=== PATIENT | female | born 1985 | race Caucasian/White ===

== ENCOUNTER → 2016-08-04 | Outpatient (CLI) | payer OTHER ==
[~2016-08-04] MED LIST: BUPR150T3 PO; BUSP5TAB PO; BUSP5TAB3 PO; CEPH500C3 PO; GABA100C4 PO; IBUP-232 PO; NAPR500 PO; OLAN15TA PO; OXYC1TAB63 PO; PREN29TA PO; REGL10TA5 PO
== END ==
LOC: HPND 08:57
DX: O35.0XX0 Maternal care for (suspected) central nervous system malformation in fetus, not applicable or unspecified (principal)
CPT/HCPCS: 76811; 76825; 76827; 93325

== ENCOUNTER 2016-08-19 11:30 | Inpatient (IN) | payer OTHER ==
[~2016-08-19 11:30] MED LIST changes: -BUSP5TAB PO; -GABA100C4 PO; -IBUP-232 PO; -OXYC1TAB63 PO; -PREN29TA PO; -REGL10TA5 PO
--- NOTE | 2016-08-19 13:04 | HHI.HP ---
HPI Chief Complaint low FILI (5) recent voluntary withdrawal from low dose buprenorphine trisomy 21 previous section x2 Date Seen: Aug 19, 2016 Travel History International Travel<30 Days: No Contact w/Intl Traveler<30Days: No Known Affected Area: No History of Present Illness HPI 31 yo wf at 37 1/7 weeks now at [facility] after diversion from [facility] to [place]. Was on 2 mg subutex BID. Notes decreased movement and BPP 8/ 8 but FILI 5. has trisomy 21 no PTL,HTN did not have 28 week labs that we can find (transfer to [facility] from the [facility]) Para: 2 : 3 History Past Medical History Narrative Medical opioid dependence in remission Past Surgical History Narrative Surgical previous section x 2 Family History Family History: Negative Social History Alcohol Use: No Tobacco Use: No Substance Abuse: Yes Allergies-Medications (Allergen,Severity, Reaction): Coded Allergies: No Known Allergies (Unverified , 08/19/15) Home Meds Active Scripts Cephalexin (Keflex)500 Mg Qal219 Mg PO Q8 #21 CAP Prov:Lashawn Strickland MD 04/22/16 Reported Medications Buspar5 Mg 5 Mg Tab15 Mg PO BID 09/08/15 Naproxen (Naprosyn)500 Mg Eys651 Mg PO DAILY PRN (PAIN) 09/08/15 Bupropion Hcl (Bupropion Hcl Xl)150 Mg Ufp406 Mg PO DAILY 09/08/15 Olanzapine (Olanzapine)15 Mg Tab7.5 Mg PO HS 09/08/15 Review of Systems General / Constitutional: No: Fever, Weight Gain, Chills, Other Gastrointestinal: Nausea, Indigestion Physical Exam Narrative GENERAL: Well-nourished, well-developed patient. SKIN: Warm and dry. HEAD: Normocephalic and atraumatic. EYES: No scleral icterus. No injection or drainage. ENT: No nasal drainage noted. Mucous membranes pink. Airway patent. NECK: Supple, trachea midline. No JVD. CARDIOVASCULAR: Regular rate and rhythm without murmurs, gallops, or rubs. RESPIRATORY: Breath sounds equal bilaterally. No accessory muscle use. BREASTS: Bilateral exam showed no masses , no retractions, no nipple discharge. ABDOMEN/GI: Abdomen soft, non-tender, bowel sounds present, no rebound, no guarding 37 cm cervix closed and retroverted EFW 7 1/2 EXTREMITIES: No cyanosis or edema. BACK: Nontender without obvious deformity. No CVA tenderness. NEUROLOGICAL: Awake and alert. Motor and sensory grossly within normal limits. Five out of 5 muscle strength in all muscle groups. Normal speech. Data Data Orders here in antepartum for monitoring and determination if section needed earlier than 39 weeks Nini Quan MD Aug 19, 2016 13:04
[2016-08-19] MEDS ORDERED: ZOLPIDEM TARTRATE 5 MG TAB PO PRN (13:15)
[2016-08-19] MEDS ORDERED: SODIUM CHLORIDE 0.9% FLUSH 5 ML FLUSH IVF PRN (13:15)
[2016-08-19] MEDS ORDERED: ALUMINUM/MAGNESIUM/SIMETH 30 ML CUP PO PRN (13:15)
[2016-08-19] MEDS ORDERED: ONDANSETRON ODT 4 MG TAB PO PRN (13:15)
[2016-08-19 13:23] LABS: BACTERIA, URINE RARE /hpf; BLOOD, URINE NEG (NEG); GLUCOSE,URINE NEG (NEG); KETONE, URINE 40 mg/dL (NEG); MUCUS URINE FEW /lpf (OCC); NITRITE,URINE NEG (NEG); PH, URINE 5.5 (5.0-8.5); SQUAMOUS EPITHELIAL CELL URINE 1 /hpf (0-5); URINE COLOR YELLOW (YELLW/STRAW)
[2016-08-19 13:34] LABS: COMMENT (UR) CULT NOT INDICATED; CULTURE IF INDICATED CULT NOT INDICATED
[2016-08-19 15:16] LABS: AUTOMATED NEUTROPHIL # 9.6 TH/MM3 (1.8-7.7); BASOPHIL % 0.2 % (0.0-2.0); EOSINOPHIL % 0.3 % (0.0-4.0); HEMATOCRIT 38.3 % (35.0-46.0); HEMO FLAGS DIFF FINAL; LYMPH % 21.1 % (9.0-44.0); LYMPHOCYTE # 2.8 TH/MM3 (1.0-4.8); MEAN CELL VOLUME 92.5 FL (80.0-100.0); MEAN CORPUSCULAR HEMOGLOBIN 31.1 PG (27.0-34.0); MEAN CORPUSCULAR HGB CONC 33.6 % (32.0-36.0); MONO % 6.5 % (0.0-8.0); NEUT % 71.9 % (16.0-70.0); PLATELET COUNT 322 TH/MM3 (150-450); RED BLOOD COUNT 4.14 MIL/MM3 (4.00-5.30); RED CELL DISTRIBUTION WIDTH 15.8 % (11.6-17.2); WHITE BLOOD COUNT 13.3 TH/MM3 (4.0-11.0)
[2016-08-19 15:26] LABS: BICARBONATE 18.7 MEQ/L (21.0-32.0); POTASSIUM 3.5 MEQ/L (3.5-5.1)
[2016-08-19 15:28] LABS: INDIRECT BILIRUBIN 0.5 MG/DL (0.0-0.8); TOTAL BILIRUBIN ADULT 0.6 MG/DL (0.2-1.0)
[2016-08-19 15:45] VITALS: RESP 18; TEMP 98.6
[2016-08-19 15:46] VITALS: BP 112/69; PULSE 88
[2016-08-19] MEDS: ACETAMINOPHEN 325 MG TAB PO PRN (19:24)
[2016-08-19] MEDS: SODIUM CHLORIDE 0.9% FLUSH 5 ML FLUSH IVF SCH (21:00)
[2016-08-20] VITALS (14 sets, daily range): BP systolic 93–123; BP diastolic 62–72; PULSE 69–82; RESP 16–20; TEMP 97.5–98; O2SAT 95–97
[2016-08-20] MEDS: ACETAMINOPHEN 325 MG TAB PO PRN (01:37)
--- NOTE | 2016-08-20 07:51 | PD.OB.ANTE ---
Subjective Interval History at 37 2/7 with prior section x2. Baby trisomy 21 (found late in third trimester) and recently stopped low dose subutex and is at [facility]. BPP yesterday showed FILI 5 and she questions leakage but had already been checked. still says little episodes of wetness through night. GFM some cramping Some back pain from "nerve damamge" In good spirits and cooperative. If amnisure negative and FILI better may return to [facility] Otherwise I will section tonight. Antepartum ROS: Denies: New complaints, Loss of fluid, Vaginal bleeding, movement normal, Contractions, Other Objective Vital Signs Vital Signs Date Time Temp Pulse Resp B/P Pulse Ox O2 Delivery O2 Flow Rate FiO2 08/20/16 01:37 82 107/72 08/20/16 01:36 97.5 16 08/19/16 20:30 18 08/19/16 15:46 88 08/19/16 15:46 112/69 08/19/16 15:45 98.6 18 Lab & Micro Results Test 08/19/16 08/19/16 12:30 15:02 Urine Color YELLOW Urine Turbidity CLEAR Urine pH 5.5 Urine Specific [place] 1.021 Urine Protein TRACE mg/dL Urine Glucose (UA) NEG mg/dL Urine Ketones 40 mg/dL Urine Occult Blood NEG Urine Nitrite NEG Urine Bilirubin NEG Urine Urobilinogen LESS THAN 2.0 MG/DL Urine Leukocyte Esterase NEG Urine RBC LESS THAN 1 /hpf Urine WBC 1 /hpf Urine Squamous Epithelial 1 /hpf Cells Urine Bacteria RARE /hpf Urine Mucus FEW /lpf Microscopic Urinalysis Comment CULT NOT INDICATED White Blood Count 13.3 TH/MM3 Red Blood Count 4.14 MIL/MM3 Hemoglobin 12.9 GM/DL Hematocrit 38.3 % Mean Corpuscular Volume 92.5 FL Mean Corpuscular Hemoglobin 31.1 PG Mean Corpuscular Hemoglobin 33.6 % Concent Red Cell Distribution Width 15.8 % Platelet Count 322 TH/MM3 Mean Platelet Volume 8.4 FL Neutrophils (%) (Auto) 71.9 % Lymphocytes (%) (Auto) 21.1 % Monocytes (%) (Auto) 6.5 % Eosinophils (%) (Auto) 0.3 % Basophils (%) (Auto) 0.2 % Neutrophils # (Auto) 9.6 TH/MM3 Lymphocytes # (Auto) 2.8 TH/MM3 Monocytes # (Auto) 0.9 TH/MM3 Eosinophils # (Auto) 0.0 TH/MM3 Basophils # (Auto) 0.0 TH/MM3 CBC Comment DIFF FINAL Differential Comment Sodium Level 137 MEQ/L Potassium Level 3.5 MEQ/L Chloride Level 106 MEQ/L Carbon Dioxide Level 18.7 MEQ/L Anion Gap 12 MEQ/L Blood Urea Nitrogen 12 MG/DL Creatinine 0.63 MG/DL Estimat Glomerular Filtration 109 ML/MIN Rate Random Glucose 144 MG/DL Uric Acid 4.0 MG/DL Calcium Level 8.6 MG/DL Total Bilirubin 0.6 MG/DL Direct Bilirubin 0.1 MG/DL Indirect Bilirubin 0.5 MG/DL Aspartate Amino Transf 24 U/L (AST/SGOT) Alanine Aminotransferase 36 U/L (ALT/SGPT) Alkaline Phosphatase 209 U/L Total Protein 7.4 GM/DL Albumin 3.0 GM/DL Physical Exam GENERAL: Well-nourished, well-developed patient. CARDIOVASCULAR: Regular rate and rhythm without murmurs, gallops, or rubs. RESPIRATORY: Breath sounds equal bilaterally. No accessory muscle use. fundus soft occ UC strip category 1 Uterine Contractions: [-] EXTREMITIES: No cyanosis or edema, non-tender, without signs of DVT. Assessment and Plan Assessment and Plan see notes above. await amnisure and BPP Nini Quan MD Aug 20, 2016 07:51
[2016-08-20] MEDS: SODIUM CHLORIDE 0.9% FLUSH 5 ML FLUSH IVF SCH (09:00)
[2016-08-20] MEDS ORDERED: CITRIC ACID-SODIUM CITRATE LIQ 30 ML UDC PO SCH (10:30)
[2016-08-20] MEDS ORDERED: LACTATED RINGER'S 1000 ML IV ONE (10:30)
[2016-08-20] MEDS: LACTATED RINGER'S 1000 ML IV SCH ×2 (11:39→17:10)
[2016-08-20 11:53] LABS: AMPHETAMINE, URINE NEG (NEG); BARBITURATES, URINE NEG (NEG); COCAINE, URINE NEG (NEG)
[2016-08-20] MEDS: GABAPENTIN 100 MG CAP PO SCH ×3 (13:34→22:22)
[2016-08-20] MEDS ORDERED: PREN29TA PO (14:13)
[2016-08-20] MEDS ORDERED: OXYTOCIN 10 UNIT/ML AMP ONE (16:30)
[2016-08-20] MEDS ORDERED: ACETAMINOPHEN 1000 MG/100 ML VIAL IV ONE ×2 (16:30→18:15)
[2016-08-20] MEDS: ceFAZolin 2 GM PREMIX 50 ML IV SCH ×2 (16:35→18:45)
[2016-08-20] MEDS ORDERED: ACETAMINOPHEN 1000 MG/100 ML VIAL IV SCH (18:00)
[2016-08-20] MEDS ORDERED: MORPHINE SULFATE PF 5 MG/10 ML VIAL ONE (18:05)
[2016-08-20] MEDS ORDERED: ONDANSETRON HCL 4 MG/2 ML VIAL ONE (18:05)
--- NOTE | 2016-08-20 18:13 | PD.OB.DELI ---
Procedure Note Section Procedure Pre Op Diagnosis 37 week IUP with persistent oligohydramnios, previous section x2, trisomy 21 Post Op Diagnosis: Post Op Diagnosis same delivered Performed by Nini Quan Procedure: Repeat Low Transverse Sec, Other (BTL) Indication for delivery: Other (oligohydramnios, trisomy, ) Informed consent obtained: For anesthesia, For procedure Confirmed correct: Patient, Procedure, Site, Time-out taken Anesthesia: Spinal Medication prior to procedure: As documented in eMAR Monitoring during procedure: Blood pressure monitoring Urinary catheter: Inserted using sterile technique, To dependent drainage, ml urine output Sterile preparation: Duraprep, In usual fashion Position: Supine with wedge to right side Operative Features Skin Incision: Pfannenstiel Uterine Incision: Low transverse w/knife / blunt ext Membranes Ruptured: Artificially Presentation: Occiput anterior Delivery of : Assisted : Male One Minute : 8 Five Minute : 9 Weight: 7 4 Status of infant: Viable, Cord blood, Nursery present Placenta delivered: Intact, Sent to pathology Medications: Antibiotics, Oxytocin Estimated blood loss: average Procedure tolerated: Well Maternal Condition: Stable Baby Complications: Laceration, Other (consistent with trisomy 21) Nini Quan MD Aug 20, 2016 18:13
[2016-08-20] MEDS ORDERED: SODIUM CHLORIDE 0.9% FLUSH 5 ML FLUSH IV PRN (18:15)
[2016-08-20] MEDS ORDERED: ZOLPIDEM TARTRATE 5 MG TAB PO PRN (18:15)
[2016-08-20] MEDS ORDERED: DOCUSATE SODIUM 50 MG/SENNA 8.6 MG TAB PO PRN (18:15)
[2016-08-20] MEDS ORDERED: oxyCODONE/ACETAMINOPHEN 5 MG/325 MG TAB PO PRN (18:15)
[2016-08-20] MEDS ORDERED: KETOROLAC TROMETHAMINE 60 MG/2 ML (IM) VIAL IM PRN (18:15)
[2016-08-20] MEDS ORDERED: ACETAMINOPHEN 325 MG TAB PO PRN (18:15)
[2016-08-20] MEDS ORDERED: OXYTOCIN 30 UNITS-500ML PREMIX 500 ML IV ONE (18:15)
[2016-08-20] MEDS ORDERED: ONDANSETRON HCL 4 MG/2 ML VIAL IV PUSH PRN (18:15)
[2016-08-20] MEDS ORDERED: SIMETHICONE 80 MG CHEWABLE TAB PO PRN (18:15)
[2016-08-20] MEDS ORDERED: DICLOFENAC SODIUM 37.5 MG/ML VIAL IV PUSH ONE ×2 (18:33→19:05)
[2016-08-20] MEDS ORDERED: EPIDURAL-DO NOT ADMINISTER ANTICOAGULANTS XX PRN (19:30)
[2016-08-20] MEDS ORDERED: EPIDURAL-DIPHENHYDRAMINE HCL 50 MG/ML VIAL IV PUSH PRN (19:30)
[2016-08-20] MEDS ORDERED: EPIDURAL-NO SYSTEMIC NARCOTICS XX PRN (19:30)
[2016-08-20] MEDS ORDERED: EPIDURAL-DIPHENHYDRAMINE HCL 50 MG CAP PO PRN (19:30)
[2016-08-20] MEDS ORDERED: EPIDURAL-NALOXONE HCL 0.4 MG/ML AMP IV PRN (19:30)
[2016-08-20] MEDS ORDERED: OXYTOCIN 30 UNITS-500ML PREMIX 500 ML ONE (19:39)
[2016-08-20] MEDS: SODIUM CHLORIDE 0.9% FLUSH 5 ML FLUSH IV SCH (20:54)
[2016-08-20] MEDS ORDERED: LACTATED RINGER'S 1000 ML INJ 1,000 ML IV SCH (23:13)
[2016-08-21 01:20] VITALS: BP 98/54; PULSE 71; RESP 16; TEMP 97.9; TEMP 98.6; O2SAT 97
[2016-08-21] MEDS: ACETAMINOPHEN 1000 MG/100 ML VIAL IV SCH ×2 (01:34→10:00)
[2016-08-21 02:00] VITALS: PULSE 16; RESP 16
[2016-08-21 03:15] VITALS: RESP 16
[2016-08-21] MEDS ORDERED: OXYTOCIN 30 UNITS-500ML PREMIX 500 ML IV PRN (04:15)
[2016-08-21 05:55] LABS: AUTOMATED NEUTROPHIL # 8.1 TH/MM3 (1.8-7.7); BASOPHIL % 0.3 % (0.0-2.0); EOSINOPHIL % 0.4 % (0.0-4.0); HEMATOCRIT 32.3 % (35.0-46.0); HEMO FLAGS DIFF FINAL; LYMPH % 19.5 % (9.0-44.0); LYMPHOCYTE # 2.2 TH/MM3 (1.0-4.8); MEAN CELL VOLUME 93.1 FL (80.0-100.0); MEAN CORPUSCULAR HEMOGLOBIN 31.9 PG (27.0-34.0); MEAN CORPUSCULAR HGB CONC 34.3 % (32.0-36.0); MONO % 8.7 % (0.0-8.0); NEUT % 71.1 % (16.0-70.0); PLATELET COUNT 289 TH/MM3 (150-450); RED BLOOD COUNT 3.47 MIL/MM3 (4.00-5.30); WHITE BLOOD COUNT 11.3 TH/MM3 (4.0-11.0)
[2016-08-21] MEDS ORDERED: OXYC1TAB63 PO (08:45)
[2016-08-21] MEDS: GABAPENTIN 100 MG CAP PO SCH ×4 (08:50→21:08)
[2016-08-21] MEDS: oxyCODONE/ACETAMINOPHEN 5 MG/325 MG TAB PO PRN ×3 (08:52→21:08)
[2016-08-21] MEDS: IBUPROFEN 600 MG TAB PO PRN ×3 (09:44→21:08)
[2016-08-21] MEDS: busPIRone HCL 5 MG TAB PO SCH ×2 (11:10→21:08)
--- NOTE | 2016-08-21 11:56 | HHI.OB ---
Subjective Post Operative Day: 1 Objective Vitals/I&O Vital Signs Date Time Temp Pulse Resp B/P Pulse Ox O2 Delivery O2 Flow Rate FiO2 08/21/16 03:15 16 08/21/16 02:00 16 16 08/21/16 01:20 98.6 97 08/21/16 01:20 97.9 08/21/16 01:20 71 16 98/54 08/20/16 22:20 18 08/20/16 20:25 69 20 93/64 08/20/16 20:25 97.7 08/20/16 18:52 18 95 08/20/16 18:52 72 105/66 08/20/16 18:36 97 08/20/16 18:36 72 18 114/72 08/20/16 18:24 18 95 08/20/16 18:24 72 114/62 08/20/16 18:05 97.7 81 18 116/69 96 08/20/16 16:40 72 113/64 08/20/16 15:56 18 08/20/16 15:15 72 104/64 08/20/16 12:00 98.0 Result Diagram: 08/21/16 0530 08/19/16 1502 Objective Remarks GENERAL: Well-nourished, well-developed patient. CARDIOVASCULAR: Regular rate and rhythm without murmurs, gallops, or rubs. RESPIRATORY: Breath sounds equal bilaterally. No accessory muscle use. ABDOMEN/GI: Abdomen soft, non-tender, bowel sounds present. Incision: DRESSING, Clean, dry and intact. Fundus: Firm, non-tender at umbilicus. GENITOURINARY: Light to moderate bleeding. EXTREMITIES: No cyanosis or edema, non-tender, without signs of DVT. Medications and IVs Current Medications Medications (Trade) Dose Ordered Sig/Lazaro Route Start Time Stop Time Status Last Admin (Tylenol) 650 mg Q4H PRN PO 08/19/16 13:15 08/20/16 01:37 (Mag-Al Plus Susp Liq) 30 ml QID PRN PO 08/19/16 13:15 08/19/16 20:15 Ondansetron HCl 4 mg 4 mg Q6H PRN PO 08/19/16 13:15 (Lr 1000 ml Inj) 1,000 ml @ 150 mls/hr Q6H40M IV 08/20/16 10:30 08/20/16 11:39 Gabapentin 200 mg 200 mg QID PO 08/20/16 13:00 08/21/16 08:50 (Lr 1000 ml Inj) 1,000 ml @ 100 mls/hr Q10H IV 08/20/16 23:13 08/21/16 19:12 08/21/16 01:32 (NS Flush) 2 ml BID IV 08/20/16 21:00 (NS Flush) 2 ml UNSCH PRN IV 08/20/16 18:15 (Mylicon Chew) 80 mg QID PRN PO 08/20/16 18:15 (Tylenol) 650 mg Q6H PRN PO 08/20/16 18:15 (Percocet 5-325 Mg) 1 tab Q4H PRN PO 08/20/16 18:15 (Percocet 5-325 Mg) 2 tab Q4H PRN PO 08/20/16 18:15 08/21/16 08:52 (Merline-Colace) 2 tab Q12H PRN PO 08/20/16 18:15 (Ambien) 5 mg HS PRN PO 08/20/16 18:15 (M-M-R Ii Inj) 0.5 ml ONCE ONCE SQ 08/21/16 16:00 08/21/16 16:01 (Boostrix Inj) 0.5 ml ONCE ONCE IM 08/21/16 16:00 08/21/16 16:01 08/21/16 11:23 (Zofran Inj) 4 mg Q6H PRN IV PUSH 08/20/16 18:15 Miscellaneous Information NO SYSTEMIC NARCOTICS TO BE GIVEN FO... UNSCH PRN XX 08/20/16 19:30 08/21/16 19:29 (Narcan Inj) 0.4 mg UNSCH PRN IV 08/20/16 19:30 08/21/16 19:29 (Benadryl Inj) 25 mg Q6H PRN IV PUSH 08/20/16 19:30 08/21/16 19:29 08/20/16 22:28 (Benadryl) 50 mg Q6H PRN PO 08/20/16 19:30 08/21/16 19:29 Miscellaneous Information ALL NURSING DEPARTMENTS UNSCH PRN XX 08/20/16 19:30 08/21/16 19:29 (Motrin) 600 mg Q6HR PRN PO 08/21/16 09:00 08/21/16 09:44 (Buspar) 5 mg Q12HR PO 08/21/16 10:00 08/21/16 11:10 Assessment/Plan Problem List: (1) delivery delivered Plan: ROUTINE (2) Oligohydramnios (3) 37 weeks gestation of Assessment and Plan PT TEARFUL, SENT TO [facility] FOR CARDIAC EVALUATION PT ANXIOUS TO BE DC TO SEE PT STARTED ON BUSPAR FOR ANXIETY PAIN WELL MANAGED, WILL START ORAL PAIN MEDICATION THIS AM UP TO SHOWER TODAY AND REMOVE DRESSING ROUTINE Karla Gamez Aug 21, 2016 11:56
[2016-08-21 12:00] VITALS: BP 116/77; PULSE 70; RESP 18; TEMP 98.5
[2016-08-21 16:00] VITALS: BP 116/75; PULSE 70; RESP 18; TEMP 98.5
[2016-08-21] MEDS ORDERED: MEASLES, MUMPS, RUBELLA VACCINE 0.5 ML VIAL SQ ONE (16:00)
[2016-08-21] MEDS ORDERED: DIPHTH/TETANUS/ACEL PERTUSSIS (BOOSTER) 0.5 ML VIAL/PFS IM ONE (16:00)
[2016-08-21 19:45] VITALS: PULSE 64; RESP 18; TEMP 98.2; O2SAT 99
[2016-08-22] MEDS: SODIUM CHLORIDE 0.9% FLUSH 5 ML FLUSH IV SCH (07:12)
[2016-08-22] MEDS: LACTATED RINGER'S 1000 ML IV SCH (07:12)
[2016-08-22] MEDS: IBUPROFEN 600 MG TAB PO PRN (07:19)
[2016-08-22] MEDS: oxyCODONE/ACETAMINOPHEN 5 MG/325 MG TAB PO PRN (07:19)
[2016-08-22 07:25] VITALS: BP 112/73; PULSE 73; RESP 18; TEMP 98.5
[2016-08-22] MEDS: GABAPENTIN 100 MG CAP PO SCH (08:45)
[2016-08-22] MEDS: busPIRone HCL 5 MG TAB PO SCH (08:45)
--- NOTE | 2016-08-22 08:51 | HHI.OB ---
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 CARDIOVASCULAR: Regular rate and rhythm without murmurs, gallops, or rubs. RESPIRATORY: Breath sounds equal bilaterally. No accessory muscle use. ABDOMEN/GI: Abdomen soft, non-tender, bowel sounds present. Incision: DRESSING, Clean, dry and intact. Fundus: Firm, non-tender at umbilicus. GENITOURINARY: Light to moderate bleeding. EXTREMITIES: No cyanosis or edema, non-tender, without signs of DVT. Medications and IVs Current Medications Medications (Trade) Dose Ordered Sig/Lazaro Route Start Time Stop Time Status Last Admin (Tylenol) 650 mg Q4H PRN PO 08/19/16 13:15 08/20/16 01:37 (Mag-Al Plus Susp Liq) 30 ml QID PRN PO 08/19/16 13:15 08/19/16 20:15 Ondansetron HCl 4 mg 4 mg Q6H PRN PO 08/19/16 13:15 (Lr 1000 ml Inj) 1,000 ml @ 150 mls/hr Q6H40M IV 08/20/16 10:30 08/20/16 11:39 (Neurontin) 200 mg QID PO 08/20/16 13:00 08/22/16 08:45 (NS Flush) 2 ml BID IV 08/20/16 21:00 (NS Flush) 2 ml UNSCH PRN IV 08/20/16 18:15 (Mylicon Chew) 80 mg QID PRN PO 08/20/16 18:15 (Tylenol) 650 mg Q6H PRN PO 08/20/16 18:15 (Percocet 5-325 Mg) 1 tab Q4H PRN PO 08/20/16 18:15 (Percocet 5-325 Mg) 2 tab Q4H PRN PO 08/20/16 18:15 08/22/16 07:19 (Merline-Colace) 2 tab Q12H PRN PO 08/20/16 18:15 08/22/16 08:45 (Ambien) 5 mg HS PRN PO 08/20/16 18:15 (Zofran Inj) 4 mg Q6H PRN IV PUSH 08/20/16 18:15 (Motrin) 600 mg Q6HR PRN PO 08/21/16 09:00 08/22/16 07:19 (Buspar) 5 mg Q12HR PO 08/21/16 10:00 08/22/16 08:45 Assessment/Plan Problem List: (1) delivery delivered Plan: ROUTINE (2) Oligohydramnios (3) 37 weeks gestation of Assessment and Plan discharge today in care of mom. To be at [facility] by 8 pm will have scripts for reglan, buspar and motrin to see me in one week Nini Quan MD Aug 22, 2016 08:51
[2016-08-22] MEDS ORDERED: REGL10TA5 PO (08:56)
[2016-08-22] MEDS ORDERED: GABA100C4 PO (09:02)
[2016-08-22] MEDS ORDERED: IBUP-232 PO (09:02)
--- NOTE | 2016-08-22 09:02 | HHI.DCPOC ---
Discharge Care Plan Report Symptoms to Your Doctor -Temperate above 100.5 degrees -Redness, of incision or excessive or foul smelling drainage -Unusual pain or calf pain -Increased vaginal bleeding -Painful or difficulty urinating -Feelings of extreme sadness or anxiety after 2 weeks Goals to Promote Your Health * To prevent worsening of your condition and complications * To maintain your health at the optimal level Directions to Meet Your Goals Take your medications as prescribed Follow your dietary instruction Follow activity as directed Ensure plenty of rest for recovery Drink fluids for hydration Keep your appointments as scheduled Take your immunizations and boosters as scheduled If your symptoms worsen call your PCP, if no PCP go to Urgent Care Center or Emergency Room Smoking is Dangerous to Your Health. Avoid second hand smoke Call the 24-hour crisis hotline for domestic abuse at Nini Quan MD Aug 22, 2016 09:02
[2016-08-22] MEDS ORDERED: BUSP5TAB PO (09:07)
[2016-08-24 09:45] LABS: BATH SALTS (MDPV) UR NEG (NEG); ECSTASY (MDMA) UR NEG (NEG); HEROIN (6-ACETYLMORPHINE) UR NEG (NEG); K2 SPICE UR NEG (NEG); OBMETHADONE UR NEG (NEG); OXYCODONE (PERCODAN) NEG (NEG); PHENCYCLIDINE URINE NEG (NEG)
--- NOTE | 2016-08-26 08:00 | MP ---
cc: NINI KONG DATE OF SURGERY 08/20/2016 DATE OF 1985 POSTOPERATIVE DIAGNOSIS 37 plus week intrauterine with trisomy 21 infant, persistent oligohydramnios and previous section x2, multiparity also. PROCEDURE Repeat low transverse segment section and bilateral fimbriectomy ANESTHESIA Spinal with Duramorph SURGEON Nini Kong MD [employer] OR staff FINDINGS A living male weighing 7 pounds 4 ounces and 's 8 at one and 9 at five was delivered from [place] with freely no fluid. There was a small laceration on the infant's forehead. The cord allowed delayed clamping for 45 seconds then clamped and cut and the infant was handed to the neonatology team in attending. He had some classic faces consistent with trisomy and required a little bit of oxygen, but overall is doing well. The fimbria were removed from both sides and estimated blood loss was average. Sponge, instrument, needle count were correct and mom and baby tolerated procedure well. PROCEDURE The patient was apprised of the risks, benefits, expectations for her surgery. She had recently weaned off the low dose of Suboxone and is having persistent oligohydramnios. She was brought down from [facility], evaluated and the decision was made to proceed. She was taken to the operating room. She was given a spinal with Duramorph, placed in the dorsal supine position with weight off the vena cava. Sequential stockings were placed and then she had a Arellano catheter placed. She was prepped and draped in the usual sterile fashion. She received two grams of Ancef IV. A time-out was performed. After assuring adequate analgesia, a Pfannenstiel incision was made through her prior incision and was taken down to the rectus fascia. The rectus fascia was incised and then it was taken off the rectus muscle. The rectus muscle in the midline. The parietal peritoneum was entered sharply. A bladder flap was created off the very very thin lower uterine segment. It was very difficult to separate the lower uterine muscle from the . There was virtually no fluid noted. A small laceration was incurred on the baby's forehead. The incision was extended bluntly in a vertical fashion and the infant was delivered easily. The cord was clamped x2, cut and he was handed to the neonatology team in attending after 4-5 seconds. Then cord blood was obtained. Then the uterus was exteriorized, the placenta was removed and sent to pathology. It was cleaned with a lap sponge and closed with chromic in a running interlocking fashion with a second horizontal imbricating layer. Then both fimbriated portions of the tubes were tied off x3 and excised with hemostasis confirmed. The uterus was replaced in the abdomen. Hemostasis was confirmed. Irrigation was performed and then the rectus muscle was approximated with a running stitch. The fascia was closed with a running stitch. The subcutaneous layer was closed with 3-0 plain and the skin was closed with 4-0 Vicryl on a [place] needle. Estimated blood loss was average. Sponge, instrument, needle counts were correct. She tolerated procedure well and she went to the recovery room in stable condition. MD RAGINI Sandoval/MARCELO /6:18 PM /7:31 AM
== END 2016-08-22 10:05 | disposition home or self-care (01) | DRG 765 ==
LOC: EDSTATUS 11:36 → H2EA 11:38 → OBSVTOIN 11:38 → H1EA 08-20 19:57
PROVIDERS: ADMIT Obstetrics & Gynecology; ATTEND Obstetrics & Gynecology
PROC: 10D00Z1 Extraction of Products of Conception, Low, Open Approach (ICD-10-PCS; principal; 2016-08-22)
PROC: 0UB70ZZ Excision of Bilateral Fallopian Tubes, Open Approach (ICD-10-PCS; 2016-08-22)
DX: O41.03X0 Oligohydramnios, third trimester, not applicable or unspecified (principal); O99.324 Drug use complicating childbirth; O36.8130 Decreased fetal movements, third trimester, not applicable or unspecified; O99.344 Other mental disorders complicating childbirth; O34.211 Maternal care for low transverse scar from previous cesarean delivery; Q90.9 Down syndrome, unspecified; F11.21 Opioid dependence, in remission; Z3A.37 37 weeks gestation of pregnancy; Z37.0 Single live birth; F41.9 Anxiety disorder, unspecified
CPT/HCPCS: 76819; 76937; 80048; 80076; 80307; 81001; 83992; 84112; 84550; 85025; 86850; 86900; 86901; 87641; 88302; 88307; 90715; G0378; G0480; G0481; J0131; J0690; J1130; J1200; J2274; J2405; J2590; J7120